=== PATIENT | male | born 1965 | race Caucasian/White ===

== ENCOUNTER 2021-05-21 12:52 | Emergency (ER) | payer BC ==
[~2021-05-21] VITALS: Ht 172.7 cm; Wt 94.3 kg
[2021-05-21] MEDS ORDERED: CASIRIVIMAB/IMDEVIMAB 10 ML in SODIUM CHLORIDE 0.9% 100 ML IV ONE (14:00)
[2021-05-21 15:06] VITALS: BP 126/99
== END 2021-05-21 15:08 | disposition home or self-care (01) ==
LOC: ER 13:55
DX: U07.1 COVID-19 (principal); Z88.0 Allergy status to penicillin
CPT/HCPCS: 99283; J7050